=== PATIENT | male | born 1990 | race Two or more races ===

== ENCOUNTER 2024-07-08 06:02 | Emergency (ER) | payer OTHER ==
[~2024-07-08] VITALS: Ht 190.5 cm; Wt 78.5 kg
[2024-07-08] MEDS ORDERED: FENOFIBRATE50 MG (06:32)
[2024-07-08] MEDS ORDERED: KETOROLAC TROMETHAMINE 60 MG VIAL IM STA (07:26)
[2024-07-08] MEDS ORDERED: ORPHENADRINE CITRATE 30 MG/ML AMPUL IM STA (07:27)
[2024-07-08] MEDS ORDERED: ORPHENADRINE CITRATE 30 MG/ML AMPUL ONE (07:33)
[2024-07-08] MEDS ORDERED: KETOROLAC TROMETHAMINE 60 MG VIAL IM ONE (07:34)
[2024-07-08] MEDS ORDERED: KETO10TA2 PO (10:25)
[2024-07-08] MEDS ORDERED: CYCLOBENZAPRINE5 MG PO (10:25)
== END 2024-07-08 10:47 | disposition home or self-care (01) ==
LOC: ER 06:04
DX: S39.012A Strain of muscle, fascia and tendon of lower back, initial encounter (principal); X58.XXXA Exposure to other specified factors, initial encounter; Y93.89 Activity, other specified; Y92.89 Other specified places as the place of occurrence of the external cause; Y99.9 Unspecified external cause status; M62.830 Muscle spasm of back